=== PATIENT | male | born 1960 | race Caucasian/White ===

== ENCOUNTER 2017-06-18 17:32 | Emergency (ER) | payer OTHER ==
[2017-06-18 17:40] VITALS: TEMP 98.2
--- NOTE | 2017-06-18 17:43 | EDPHY ---
H & P Stated Complaint: CHEST PAIN WITH BACK PAIN X 3 HOURS Time Seen by Provider: 06/18/17 17:43 - Personal History Current Tetanus/Diphtheria Vaccine: Unsure Current Tetanus Diphtheria and Acellular Pertussis (TDAP): Unsure - Medical/Surgical History Hx Asthma: No Hx Chronic Respiratory Disease: No Hx Diabetes: No Hx Cardiac Disease: No Hx Renal Disease: No Hx Cirrhosis: No Hx Alcoholism: No Hx HIV/AIDS: No Hx Splenectomy or Spleen Trauma: No Other PMH: KIDNEY STONES - Social History Smoking Status: Light smoker Constitutional: Initial Vital Signs Temperature (C) 36.8 C 06/18/17 17:37 Heart Rate 98 06/18/17 17:37 Respiratory Rate 18 06/18/17 17:37 Blood Pressure 136/94 H 06/18/17 17:37 O2 Sat (%) 96 06/18/17 17:37 O2 Delivery Mode Room Air Allergies/Adverse Reactions: No Known Allergies Allergy (Unverified 06/18/17 17:39) Home Medications: Medication Instructions Recorded NK [No Known Home Meds] 06/18/17 Medical Decision Making - Diagnostics Imaging Results: Imaging Impressions Chest X-Ray 06/18/17 18:07 Impression: No acute thoracic abnormality. Chest/Thorax CTA 06/18/17 18:36 Impression: 1. No pulmonary embolism to the segmental level. 2. Right greater than left upper lobe predominant emphysema. 3. Right upper lobe nodule measuring 3 mm. Per Fleischner Society 2017 guidelines, if this patient is high-risk, consider CT in [address] Cartagena discussed these findings by telephone with Zaire Petersen MD on 06/18 at 20:20. Imaging: Discussed imaging studies w/ call center operations manager Radiologist, I viewed and interpreted images myself ED Course/Re-evaluation: CHIEF COMPLAINT: Chest pain, back pain. HISTORY OF PRESENT ILLNESS: This patient is a healthy 56 y/o male complaining of chest and back pain. This afternoon while at work he developed an "odd" pain in his back which he rates at 8/10 in severity. This did not feel like muscular pain, but felt more similar to prior kidney stone pain. He felt this was two high for another kidney stone as it was localized to his mid-lung area. He left work and took four baby aspirin and Tylenol. While driving home, he felt nauseous, but this resolved. He took a hot bath and afterwards, the discomfort moved into his right chest area. He notes no changes with movement or deep inspiration. He denies ever having similar pain before. Currently, his pain is directly under his right ribcage. This is not reproducible. He denies recent trauma or unusual activities. He denies recent international travel or other prolonged periods of sitting. He denies shortness of breath. No family history of heart disease in parents or siblings, but his positive history of lung cancer in his mother and sister. Patient is a current smoker. Patient denies history of diabetes or known hypertension or hyperlipidemia. REVIEW OF SYSTEMS: A 10 point review of systems was performed and is negative with the exception of the elements mentioned in the history of present illness. PHYSICAL EXAM: HR, BP, O2 Sat, RR. Temp noted General Appearance: Alert, well hydrated, appropriate, and non-toxic appearing. Head: Atraumatic without scalp tenderness or obvious injury Eyes: Pupils equal, round, reactive to light and accommodation, EOMI, no trauma , no injection. Ears: Clear bilaterally, no perforation, normal landmarks Nose: Atraumatic, no rhinorrhea, clear. Throat: There is no erythema or exudates, no lesions, normal tonsils, mucus membranes moist. Neck: Supple, nontender, no lymphadenopathy. Respiratory: No retractions, no distress, no wheezes, and no accessory muscle use. Lungs are clear to auscultation bilaterally. Cardiovascular: Regular rate and rhythm, no murmurs, rubs, or gallops. Bilateral carotid, radial, dorsalis pedis, and posterior tibial pulses intact. Good capillary refill all extremities. Gastrointestinal: Abdomen is soft, nontender, non-distended, no masses, no rebound, no guarding, no peritoneal signs. Musculoskeletal: Normal active ROM of all extremities, atraumatic. Neurological: Alert, appropriate, and interactive. Nonfocal neuro exam. Skin: No rashes, good turgor, no nodules on palpation. Past medical history: Kidney stones Past surgical history: Noncontributory Family history: Positive for lung cancer in mother and sister. Social history: Current tobacco use. Lives in [place]. Employed. DIAGNOSTICS/PROCEDURES/CRITICAL CARE TIME: 17:51 The 12 lead EKG was interpreted by myself. See hard copy and/or "tracemaster" electronic copy for interpretation. Sinus rhythm, borderline tachycardia. DIFFERENTIAL DIAGNOSIS: The differential diagnosis for the patient's chest pain included but was not limited to myocardial ischemia, pulmonary embolus, chest wall pain, pleural inflammation, and pulmonary infectious causes. MEDICAL DECISION MAKIN56 y/o male presents with right-sided atypical chest pain onset several hours prior to arrival. Exam unremarkable, patient's pain is not reproducible. Patient denies medication for pain or nausea at this point. Plan for EKG, chest x-ray, labs including CBC, BMP, troponin, D-dimer, BNP. EKG shows sinus rhythm. Laboratory results reviewed. Troponin, d-dimer, BNP negative. 18:36 Chest x-ray negative for acute processes. Radiologist report concurs. Plan for CT chest for further evaluation. 20:[address] Cartagena, radiologist. CT negative for acute processes. Incidentally, noted small lung nodule. Recommended 6-12 month follow up per 2017 Fleischner criteria. No evidence of acute cardiopulmonary processes. Patient presents with atypical chest pain. 20:25 Reassessed patient. Discussed imaging and other laboratory results. Plan to discharge home in good condition with referral to cardiology. Lung nodule CT followup recommendations are understood. Return precautions discussed. The patient is comfortable with this plan. - Data Points Laboratory Results: Laboratory Results 06/18/17 17:50 06/18/17 17:50 06/18/17 06/18/17 06/18/17 17:50 17:50 17:50 WBC 12.98 10^3/uL H 10^3/uL (3.80-9.50) RBC 4.96 10^6/uL 10^6/uL (4.40-6.38) Hgb 16.5 g/dL g/dL (13.7-17.5) Hct 45.6 % % (40.0-51.0) MCV 91.9 fL fL (81.5-99.8) MCH 33.3 pg pg (27.9-34.1) MCHC 36.2 g/dL g/dL (32.4-36.7) RDW 12.5 % % (11.5-15.2) Plt Count 336 10^3/uL 10^3/uL (150-400) MPV 8.5 fL L fL (8.7-11.7) Neut % (Auto) 82.7 % H % (39.3-74.2) Lymph % (Auto) 11.9 % L % (15.0-45.0) [place] % (Auto) 4.2 % L % (4.5-13.0) Eos % (Auto) 0.5 % L % (0.6-7.6) Baso % (Auto) 0.2 % L % (0.3-1.7) Nucleat RBC Rel Count 0.0 % % (0.0-0.2) Absolute Neuts (auto) 10.73 10^3/uL H 10^3/uL (1.70-6.50) Absolute Lymphs (auto) 1.55 10^3/uL 10^3/uL (1.00-3.00) Absolute Monos (auto) 0.54 10^3/uL 10^3/uL (0.30-0.80) Absolute Eos (auto) 0.07 10^3/uL 10^3/uL (0.03-0.40) Absolute Basos (auto) 0.03 10^3/uL 10^3/uL (0.02-0.10) Absolute Nucleated RBC 0.00 10^3/uL 10^3/uL (0-0.01) Immature Gran % 0.5 % % (0.0-1.1) Immature Gran # 0.06 10^3/uL 10^3/uL (0.00-0.10) D-Dimer < 0.27 ug/mLFEU ug/mLFEU (0.00-0.50) Sodium 137 mEq/L mEq/L (134-144) Potassium 4.4 mEq/L mEq/L (3.5-5.2) Chloride 104 mEq/L mEq/L (97-110) Carbon Dioxide 20 mEq/l L mEq/l (22-31) Anion Gap 13 mEq/L mEq/L (8-16) BUN 13 mg/dL mg/dL (7-23) Creatinine 0.8 mg/dL mg/dL (0.7-1.3) Estimated GFR > 60 Glucose 101 mg/dL H mg/dL (70-100) Calcium 9.6 mg/dL mg/dL (8.5-10.4) Troponin I < 0.012 ng/mL ng/mL (0.000-0.034) NT-Pro-B Natriuret Pep 31 pg/mL pg/mL (0-125) Departure - Departure Disposition: Home, Routine, Self-Care Clinical Impression: Atypical chest pain Condition: Good Instructions: Chest Pain (ED) Additional Instructions: 1. Follow-up with your primary doctor within 72 hours. We recommend you follow up in 6-12 months for a repeat CT scan of your chest for further evaluation of the small nodule noted on our scan tonight. 2. Follow up with a range ecologist for further testing, as soon as possible, within one week. 3. Return to the Emergency Department for fever, chest pain, shortness of breath , increasing pain or other worsening of condition or further concerns. Referrals: Leo Spence MD [Medical Doctor] - As per Instructions Report Scribed for: Zaire Petersen Report Scribed by: Pearl Franks Date of Report: 06/18/17 Time of Report: 17:47
--- NOTE | 2017-06-18 17:49 | CPEKG ---
Heart Rate: 99 RR Interval: 606 P-R Interval: 160 QRSD Interval: 90 QT Interval: 348 QTC Interval: 447 P [place]: 72 QRS [place]: 48 T Wave [place]: 42 EKG Severity - BORDERLINE ECG - EKG Impression: SINUS RHYTHM EKG Impression: PROMINENT P WAVES, NONDIAGNOSTIC EKG Impression: LOW VOLTAGE IN FRONTAL LEADS Electronically Signed By: Zaire Petersen 18-Jun-2017 20:14:57
[2017-06-18 18:14] LABS: PLATELET COUNT 336 10^3/uL (150-400)
[2017-06-18] MEDS ORDERED: IOPAMIDOL (ISOVUE 370) 100 ML BTL IV ONE (19:18)
[2017-06-18 20:27] VITALS: O2SAT 95
[2017-06-18 20:34] VITALS: BP 142/96; PULSE 91; RESP 16
== END 2017-06-18 20:33 | disposition home or self-care (01) ==
DX: R07.89 Other chest pain (principal); F17.200 Nicotine dependence, unspecified, uncomplicated
CPT/HCPCS: Q9967